=== PATIENT | female | born 1950 | race African-American/Black ===

== ENCOUNTER 2017-04-19 07:00 | Inpatient (IN) | payer MEDICARE, OTHER ==
[~2017-04-19] VITALS: Ht 168 cm; Wt 89.0 kg
--- NOTE | 2017-04-27 05:07 | NUR ---
PT OFFERED PAIN MEDICATION, BUT DECLINED
[2017-04-27 05:53] LABS: HCT 32.6 % (37.0-47.0); MCH 26.8 pg (25.0-31.0); MCHC 33.7 g/dL (32.0-36.0); MCV 79.5 fL (78.0-100.0); MPV 11.2 fL (6.0-9.5); RBC 4.1 M/uL (4.20-5.40); RDW 14.6 % (11.5-14.0); WBC 10.6 K/uL (4.0-10.5)
[2017-04-27 06:19] LABS: CREATININE 0.6 mg/dL (0.5-1.0); POTASSIUM 3.7 mmol/L (3.5-5.1)
[2017-04-28 05:04] LABS: HGB 10.2 g/dl (12.5-16.0); MCH 27.2 pg (25.0-31.0); MPV 10.9 fL (6.0-9.5); RBC 3.75 M/uL (4.20-5.40); RDW 14.6 % (11.5-14.0); WBC 9.2 K/uL (4.0-10.5)
[2017-04-28 05:13] LABS: CREATININE 0.7 mg/dL (0.5-1.0); POTASSIUM 3.3 mmol/L (3.5-5.1)
[2017-04-29 05:21] LABS: HCT 31.3 % (37.0-47.0); HGB 10.5 g/dl (12.5-16.0); MCH 26.9 pg (25.0-31.0); MCHC 33.5 g/dL (32.0-36.0); MCV 80.3 fL (78.0-100.0); MPV 11.1 fL (6.0-9.5); RBC 3.9 M/uL (4.20-5.40); RDW 14.6 % (11.5-14.0); WBC 9.7 K/uL (4.0-10.5)
[2017-04-29 05:37] LABS: CREATININE 0.7 mg/dL (0.5-1.0); POTASSIUM 3.1 mmol/L (3.5-5.1)
== END 2017-04-29 18:41 | DRG 470 ==
LOC: FMS 07:00
PROVIDERS: ADMIT Orthopaedic Surgery
PROC: 8E0YXBZ Computer Assisted Procedure of Lower Extremity (ICD-10-PCS; 2017-04-26)
PROC: 0SRD0J9 Replacement of Left Knee Joint with Synthetic Substitute, Cemented, Open Approach (ICD-10-PCS; principal; 2017-04-26 08:00)
DX: M17.12 Unilateral primary osteoarthritis, left knee (principal); D62 Acute posthemorrhagic anemia; I10 Essential (primary) hypertension; K21.9 Gastro-esophageal reflux disease without esophagitis; E11.9 Type 2 diabetes mellitus without complications; E78.5 Hyperlipidemia, unspecified; K64.9 Unspecified hemorrhoids; Z79.899 Other long term (current) drug therapy; Z88.8 Allergy status to other drugs, medicaments and biological substances
CPT/HCPCS: 36415; 73560; 80048; 82962; 86850; 86900; 86901; 88305; 88311; 94010; 94762; 97110; 97116; 97162; 97166; 97530-GP; 97535; C1713; C1776; J0131; J0697; J1170; J1885; J2270; J2704; J2795; J3010